=== PATIENT | female | born 1980 | race Caucasian/White ===

== ENCOUNTER 2019-09-22 22:11 | Emergency (ER) | payer OTHER ==
[~2019-09-22] VITALS: Ht 170.2 cm; Wt 70.3 kg
--- OUTSIDE RECORDS SUMMARY | 2019-09-28 12:18 | XMS REPORT ---
[facility] Address Unknown Phone Unavailable Care Team Providers Care Tuna Purse Seiner Name Role Phone Unavailable Unavailable Payers Payer Name Policy Type Policy Number Effective Date Expiration Date Problems This patient has no known problems. Allergies, Adverse Reactions, Alerts Allergy Name Allergy Type Status Severity Reaction(s) Onset Date Inactive Date Treating Clinician Comments No Known Allergies DA Active U 2019-09-02 00:00:00 pencillin DA Active VT 2019-08-30 00:00:00 No Known Allergies DA Active U 2019-08-27 00:00:00 No Known Allergies DA Active U 2013-04-20 00:00:00 Medications This patient has no known medications. Results Test Description Test Time Test Comments Text Results Atomic Results Result Comments CBC W/AUTO DIFF 2019-09-04 08:02:00 WHITE BLOOD CELL (test code=WBC) 23.15 K/mm3 5.0-12.0 RED BLOOD CELL (test code=RBC) 3.60 M/mm3 4.20-5.40 HEMOGLOBIN (test code=HGB) 10.9 G/DL 12.0-16.0 HEMATOCRIT (test code=HCT) 32.9 % 36.0-46.0 MEAN CELL VOLUME (test code=MCV) 91 fL 81-99 MEAN CELL HGB (test code=MCH) 30.3 PGM 27-31 MEAN CELL HGB CONCENTRATION (test code=MCHC) 33.1 G/DL 33-37 RED CELL DISTRIBUTION WIDTH (test code=RDW) 14.0 % 11.6-16.2 PLATELET COUNT (test code=PLT) 229 K/mm3 130-400 MEAN PLATELET VOLUME (test code=MPV) 11.4 fl 7.4-10.4 NEUTROPHIL % (test code=NT%) 77.6 % 43-65 IMMATURE GRANULOCYTE % (test code=IG%) 0.9 % 0.0-2.0 LYMPHOCYTE % (test code=LY%) 12.7 % 20.5-45.5 MONOCYTE % (test code=MO%) 8.2 % 5.5-11.7 EOSINOPHIL % (test code=EO%) 0.3 % 0.9-2.9 BASOPHIL % (test code=BA%) 0.3 % 0.2-1.0 NUCLEATED RBC % (test code=NRBC%) 0.0 % 0-1.0 NEUTROPHIL # (test code=NT#) 17.98 K/mm3 2.2-4.8 LYMPHOCYTE # (test code=LY#) 2.95 K/mm3 1.3-2.9 MONOCYTE # (test code=MO#) 1.90 K/mm3 0.3-0.8 EOSINOPHIL # (test code=EO#) 0.06 K/MM3 0.0-0.2 BASOPHIL # (test code=BA#) 0.06 K/mm3 0.0-0.1 CBC W/AUTO [id number] 22:26:00* Test Item Value Reference Range Comments WHITE BLOOD CELL (test code=WBC) 25.57 K/mm3 5.0-12.0 PATIENT DELIVERED Critical Value reported toFirst Name:EVERETT Last Name:ARLEY READ BACK AND VERIFIEDby T.LAB.IXQ, on 09/03/19, @ 2573. RED BLOOD CELL (test code=RBC) 3.81 M/mm3 4.20-5.40 HEMOGLOBIN (test code=HGB) 11.4 G/DL 12.0-16.0 HEMATOCRIT (test code=HCT) 34.7 % 36.0-46.0 MEAN CELL VOLUME (test code=MCV) 91 fL 81-99 MEAN CELL HGB (test code=MCH) 29.9 PGM 27-31 MEAN CELL HGB CONCENTRATION (test code=MCHC) 32.9 G/DL 33-37 RED CELL DISTRIBUTION WIDTH (test code=RDW) 13.9 % 11.6-16.2 PLATELET COUNT (test code=PLT) 244 K/mm3 130-400 MEAN PLATELET VOLUME (test code=MPV) 11.3 fl 7.4-10.4 NEUTROPHIL % (test code=NT%) 86.2 % 43-65 IMMATURE GRANULOCYTE % (test code=IG%) 1.1 % 0.0-2.0 LYMPHOCYTE % (test code=LY%) 4.6 % 20.5-45.5 MONOCYTE % (test code=MO%) 7.8 % 5.5-11.7 EOSINOPHIL % (test code=EO%) 0.0 % 0.9-2.9 BASOPHIL % (test code=BA%) 0.3 % 0.2-1.0 NUCLEATED RBC % (test code=NRBC%) 0.0 % 0-1.0 NEUTROPHIL # (test code=NT#) 22.02 K/mm3 2.2-4.8 LYMPHOCYTE # (test code=LY#) 1.18 K/mm3 1.3-2.9 MONOCYTE # (test code=MO#) 2.00 K/mm3 0.3-0.8 EOSINOPHIL # (test code=EO#) 0.01 K/MM3 0.0-0.2 BASOPHIL # (test code=BA#) 0.08 K/mm3 0.0-0.1 AG HEPATITIS B [id number] 14:18:00* Test Item Value Reference Range Comments AG HEPATITIS B SURFACE (test code=HBSAG) NEGATIVE NEGATIVE HIV 1 2 COMBO AG/AB [id number] 14:18:00* Test Item Value Reference Range Comments HIV 1 2 COMBO AG/AB SCREEN (test code=[id number]) Nonreactive Nonreactive AG HEPATITIS B [id number] 14:17:00* Test Item Value Reference Range Comments AG HEPATITIS B SURFACE (test code=HBSAG) NEGATIVE NEGATIVE RAPID PLASMA [id number] 10:16:00* Test Item Value Reference Range Comments RAPID PLASMA REAGIN (test code=RPR) NONREACTIVE NONREACTIVE AG HEPATITIS B [id number] 22:05:00* Test Item Value Reference Range Comments AG HEPATITIS B SURFACE (test code=HBSAG) NONREACTIVE HIV 1 2 COMBO AG/AB [id number] 22:05:00* Test Item Value Reference Range Comments HIV 1 2 COMBO AG/AB SCREEN (test code=[id number]) Nonreactive Nonreactive DRUGS OF ABUSE SCREEN [id number] 21:39:00* Test Item Value Reference Range Comments UR COCAINE (test code=COCAU) NEGATIVE NEGATIVE UR METHAMPHETAMINE (test code=METHAMPHU) NEGATIVE NEGATIVE UR CANABINOIDS (test code=CANU) NEGATIVE NEGATIVE UR AMPHETAMINE (test code=AMPHU) NEGATIVE NEGATIVE UR BARBITURATE (test code=BARBQLU) NEGATIVE NEGATIVE UR BENZODIAZEPINE (test code=BENZU) NEGATIVE NEGATIVE METHADONE (test code=METHDU) NEGATIVE NEGATIVE PROPOXYPHENE SCREEN (test code=PROPXSQ) NEGATIVE NEGATIVE UR OPIATES QUAL (test code=OPIAQLU) NEGATIVE NEGATIVE OXYCODONE (test code=OXYCOD) NEGATIVE NEGATIVE UR TRICYCLICS (test code=TRICYCU) NEGATIVE NEGATIVE UR PHENCYCLIDINE (PCP) (test code=PHENCU) NEGATIVE NEGATIVE UR BUPRENORPHINE QUAL (test code=BUPRESCRT) NEGATIVE NEAGTIVE CBC W/AUTO [id number] 21:20:00* Test Item Value Reference Range Comments WHITE BLOOD CELL (test code=WBC) 10.42 K/mm3 5.0-12.0 RED BLOOD CELL (test code=RBC) 3.59 M/mm3 4.20-5.40 HEMOGLOBIN (test code=HGB) 10.8 G/DL 12.0-16.0 HEMATOCRIT (test code=HCT) 32.5 % 36.0-46.0 MEAN CELL VOLUME (test code=MCV) 91 fL 81-99 MEAN CELL HGB (test code=MCH) 30.1 PGM 27-31 MEAN CELL HGB CONCENTRATION (test code=MCHC) 33.2 G/DL 33-37 RED CELL DISTRIBUTION WIDTH (test code=RDW) 13.8 % 11.6-16.2 PLATELET COUNT (test code=PLT) 267 K/mm3 130-400 MEAN PLATELET VOLUME (test code=MPV) 11.6 fl 7.4-10.4 NEUTROPHIL % (test code=NT%) 67.5 % 43-65 IMMATURE GRANULOCYTE % (test code=IG%) 0.6 % 0.0-2.0 LYMPHOCYTE % (test code=LY%) 22.3 % 20.5-45.5 MONOCYTE % (test code=MO%) 8.4 % 5.5-11.7 EOSINOPHIL % (test code=EO%) 0.9 % 0.9-2.9 BASOPHIL % (test code=BA%) 0.3 % 0.2-1.0 NUCLEATED RBC % (test code=NRBC%) 0.0 % 0-1.0 NEUTROPHIL # (test code=NT#) 7.04 K/mm3 2.2-4.8 LYMPHOCYTE # (test code=LY#) 2.32 K/mm3 1.3-2.9 MONOCYTE # (test code=MO#) 0.88 K/mm3 0.3-0.8 EOSINOPHIL # (test code=EO#) 0.09 K/MM3 0.0-0.2 BASOPHIL # (test code=BA#) 0.03 K/mm3 0.0-0.1 COMPREHENSIVE METABOLIC [id number] 21:46:00* Test Item Value Reference Range Comments SODIUM (test code=NA) 137 mEq/L 134-147 POTASSIUM (test code=K) 3.7 mEq/L 3.4-5.0 CHLORIDE (test code=CL) 107 mEq/L 100-108 CARBON DIOXIDE (test code=CO2) 23 mEq/L 21-33 ANION GAP (test code=GAP) 11 0-20 GLUCOSE (test code=GLU) 113 mg/dL 70-110 BLOOD UREA NITROGEN (test code=BUN) 11 mg/dL 7-18 GLOMERULAR FILTRATION RATE (test code=GFR) 110.7 95-105 Units of measure=ml/min/1.73 m2 CREATININE (test code=CREAT) 0.6 mg/dL 0.6-1.3 TOTAL PROTEIN (test code=PROT) 6.4 g/dL 6.4-8.2 ALBUMIN (test code=ALB) 2.50 g/dL 3.4-5.0 CALCIUM (test code=CA) 8.0 mg/dL 8.0-10.5 BILIRUBIN TOTAL (test code=BILT) 0.2 MG/DL <1.5 SGOT/AST (test code=AST) 16 IUnit/L 15-37 SGPT/ALT (test code=ALT) 18 IUnit/L 15-65 ALKALINE PHOSPHATASE TOTAL (test code=ALKP) 127 IUnit/L 20-125 URIC [id number] 21:46:00* Test Item Value Reference Range Comments URIC ACID (test code=URIC) 2.9 mg/dL 2.6-7.2 LACTIC DEHYDROGENASE(LDH)2019-08-27 21:46:00* Test Item Value Reference Range Comments LACTIC DEHYDROGENASE(LDH) (test code=LDH) 167 IUnits/L 84-246 CBC W/AUTO [id number] 21:35:00* Test Item Value Reference Range Comments WHITE BLOOD CELL (test code=WBC) 10.60 x10 3/uL 4.5-11.0 RED BLOOD CELL (test code=RBC) 3.52 x10 6/uL 3.54-5.02 HEMOGLOBIN (test code=HGB) 10.7 g/dL 11.0-15.0 HEMATOCRIT (test code=HCT) 32.4 % 33.0-45.0 MEAN CELL VOLUME (test code=MCV) 92.0 fL 81.0-99.0 MEAN CELL HGB (test code=MCH) 30.4 pg 27.0-33.0 MEAN CELL HGB CONCETRATION (test code=MCHC) 33.0 g/dL 33.0-37.0 RED CELL DISTRIBUTION WIDTH CV (test code=RDW) 13.5 % 11.5-14.5 RED CELL DISTRIBUTION WIDTH SD (test code=RDW-SD) 45.9 fL 37.0-54.0 PLATELET COUNT (test code=PLT) 257 x10 3/uL 150-400 MEAN PLATELET VOLUME (test code=MPV) 11.3 fL 7.0-9.0 NEUTROPHIL % (test code=NT%) 62.0 % 56.0-77.0 IMMATURE GRANULOCYTE % (test code=IG%) 0.6 % 0.0-2.0 LYMPHOCYTE % (test code=LY%) 27.0 % 14.0-32.0 MONOCYTE % (test code=MO%) 9.2 % 4.8-9.0 EOSINOPHIL % (test code=EO%) 0.9 % 0.3-3.7 BASOPHIL % (test code=BA%) 0.3 % 0.0-2.0 NUCLEATED RBC % (test code=NRBC%) 0.0 % 0-0 NEUTROPHIL # (test code=NT#) 6.58 x10 3/uL 2.0-7.6 IMMATURE GRANULOCYTE # (test code=IG#) 0.06 x10 3/uL 0.00-0.03 LYMPHOCYTE # (test code=LY#) 2.86 x10 3/uL 1.0-3.8 MONOCYTE # (test code=MO#) 0.97 x10 3/uL 0.1-0.8 EOSINOPHIL # (test code=EO#) 0.10 x10 3/uL 0.0-0.2 BASOPHIL # (test code=BA#) 0.03 x10 3/uL 0.0-0.2 NUCLEATED RBC # (test code=NRBC#) 0.00 x10 3/uL 0.0-0.1 MANUAL DIFF REQUIRED (test code=MDIFF) NO URINALYSIS [id number] 21:08:00* Test Item Value Reference Range Comments UA COLOR (test code=COLU) YELLOW YEL/STRAW UA APPEARANCE (test code=APPU) SL CLOUDY CLEAR UA GLUCOSE DIPSTICK (test code=DGLUU) NEGATIVE NEGATIVE UA BILIRUBIN DIPSTICK (test code=BILU) NEGATIVE NEGATIVE UA KETONE DIPSTICK (test code=KETU) NEGATIVE NEGATIVE UA SPECIFIC GRAVITY (test code=SGU) 1.024 1.005-1.030 UA BLOOD DIPSTICK (test code=TIERRA) NEGATIVE NEGATIVE UA PH DIPSTICK (test code=MIGUEL) 7.0 5.0-7.0 UA PROTEIN DIPSTICK (test code=PROU) 1+ NEGATIVE UA UROBILINIOGEN DIPSTICK (test code=URO) 0.2 mg/dL 0.2-1.0 UA NITRITE DIPSTICK (test code=EMERSON) NEGATIVE NEGATIVE UA LEUKOCYTE ESTERASE DIPSTICK (test code=LEUU) NEGATIVE NEGATIVE UA RBC (test code=RBCU) 0-3 RBC/HPF 0-3 UA WBC NO REFLEX (test code=WBCUCL) 0-3 WBC/HPF 0-3 UA BACTERIA (test code=BACU) NONE SEEN /HPF NONE SEEN UA SQUAMOUS CELLS (test code=SQU) 36-50 /HPF NONE SEEN UA MUCUS (test code=MUCU) TRACE /LPF NONE SEEN COMMENTS: CCUAAMNISURE (ROM) [id number] 20:53:00* Test Item Value Reference Range Comments AMNISURE (ROM) TEST (test code=AMNI) NEGATIVE NEGATIVE URIC [id number] 21:16:00* Test Item Value Reference Range Comments URIC ACID (test code=URIC) 2.5 mg/dL 2.6-7.2 THYROID STIMULATING [id number] 21:16:00* Test Item Value Reference Range Comments THYROID STIMULATING HORMONE (test code=TSH) 1.69 0.42-5.47 Results in marni-International Units/mL LACTIC DEHYDROGENASE(LDH)2019-07-10 21:06:00* Test Item Value Reference Range Comments LACTIC DEHYDROGENASE(LDH) (test code=LDH) 158 IUnits/L 84-246 - XR CHEST 1 [id number] 15:59:00 FAX: Roque Webb MD [phone] [place]: St: REG Name: ALEJO RAJAN [facility] : [birth year] Age/S: 38/F [address] [place] [address] Unit #: [id number] Loc: [place] [address] Phys: Roque Webb MD Acct: [id number] Dis Date: Status: REG ER PHONE #: [phone] Exam Date: 07/10/2019 1552 FAX #: [phone] Reason: stroke EXAMS: CPT CODE: [id number] XR CHEST 1 V 16748 EXAM: CHEST SINGLE VIEW HISTORY: 38-year-old female with stroke COMPARISON: None. FINDINGS: The lungs are clear. The cardiomediastinal silhouette is normal for projection. No acute osseous abnormality. IMPRESSION: 1. No acute cardiopulmonary abnormality. SL: [id number] at 1552 Reported and signed by: Jairo Owens M.D. CC: Roque Webb MD Technologist: Belén Cordova, RT(R); Elinor Hobson RT(R) [facility] Date/Time/By: 07/10/2019 (9385) : By: [email or web address] Orig Print D/T: S: 07/10/2019 (8713) PAGE 1 Signed Report COMPREHENSIVE METABOLIC PANEL 2019-07-10 15:46:00* Test Item Value Reference Range Comments SODIUM (test code=NA) 138 mEq/L 134-147 POTASSIUM (test code=K) 3.7 mEq/L 3.4-5.0 CHLORIDE (test code=CL) 108 mEq/L 100-108 CARBON DIOXIDE (test code=CO2) 22 mEq/L 21-33 ANION GAP (test code=GAP) 12 0-20 GLUCOSE (test code=GLU) 121 mg/dL 70-110 BLOOD UREA NITROGEN (test code=BUN) 7 mg/dL 7-18 GLOMERULAR FILTRATION RATE (test code=GFR) 111.3 105-110 Units of measure=ml/min/1.73 m2 CREATININE (test code=CREAT) 0.6 mg/dL 0.6-1.3 TOTAL PROTEIN (test code=PROT) 6.8 g/dL 6.4-8.2 ALBUMIN (test code=ALB) 2.90 g/dL 3.4-5.0 CALCIUM (test code=CA) 8.5 mg/dL 8.0-10.5 BILIRUBIN TOTAL (test code=BILT) 0.3 MG/DL <1.5 SGOT/AST (test code=AST) 16 IUnit/L 15-37 SGPT/ALT (test code=ALT) 21 IUnit/L 15-65 ALKALINE PHOSPHATASE TOTAL (test code=ALKP) 79 IUnit/L 20-125 LACTIC DEHYDROGENASE(LDH)2019-07-10 15:46:00* Test Item Value Reference Range Comments LACTIC DEHYDROGENASE(LDH) (test code=LDH) 166 IUnits/L 84-246 [id number] 15:46:00* Test Item Value Reference Range Comments TROPONIN-I (test code=TROPI) < 0.015 ng/mL 0.000-0.045 Negative: <=0.045 Positive: >=0.046 Correlation with serial results, other cardiac markers andclinical findings is necessary to determine the clinicalsignificance of this result. Results using different methodologies should not be comparedto one another as quantitative results may vary by method. URINALYSIS [id number] 15:43:00* Test Item Value Reference Range Comments UA COLOR (test code=COLU) YELLOW YEL/STRAW UA APPEARANCE (test code=APPU) CLEAR CLEAR UA GLUCOSE DIPSTICK (test code=DGLUU) NEGATIVE NEGATIVE UA BILIRUBIN DIPSTICK (test code=BILU) NEGATIVE NEGATIVE UA KETONE DIPSTICK (test code=KETU) NEGATIVE NEGATIVE UA SPECIFIC GRAVITY (test code=SGU) 1.006 1.005-1.030 UA BLOOD DIPSTICK (test code=TIERRA) NEGATIVE NEGATIVE UA PH DIPSTICK (test code=IMGUEL) 7.0 5.0-7.0 UA PROTEIN DIPSTICK (test code=PROU) NEGATIVE NEGATIVE UA UROBILINIOGEN DIPSTICK (test code=URO) 0.2 mg/dL 0.2-1.0 UA NITRITE DIPSTICK (test code=EMERSON) NEGATIVE NEGATIVE UA LEUKOCYTE ESTERASE DIPSTICK (test code=LEUU) NEGATIVE NEGATIVE UA RBC (test code=RBCU) 0-3 RBC/HPF 0-3 UA WBC NO REFLEX (test code=WBCUCL) 0-3 WBC/HPF 0-3 UA BACTERIA (test code=BACU) TRACE /HPF NONE SEEN UA SQUAMOUS CELLS (test code=SQU) 0-5 /HPF NONE SEEN UA MUCUS (test code=MUCU) TRACE /LPF NONE SEEN PROTHROMBIN [id number] 15:32:00* Test Item Value Reference Range Comments PROTHROMBIN TIME PATIENT (test code=PTP) 11.0 SECONDS 9.3-12.9 INTERNATIONAL NORMAL RATIO (test code=INR) 1.0 0.8-1.2 TARGET INR BY INDICATION Indication INR1. Prophylaxis of venous thrombosis 2.0 - 3.0 (orthopedic surgery), Prophylaxis of venous thrombosis (other than high-risk surgery), Treatment of Deep Vein Thrombosis/Pulmonary Embolism, Prevention of systemic embolism - Tissue heart valves, Acute Myocardial Infarction (to prevent systemic embolism), Valvular heart disease, Atrial Fibrillation, Bileaflet mechanical valve in aortic position.2. Mechanical prosthetic valves (high risk), 2.5 - 3.5 Presence of Lupus Anticoagulant or Antiphospholipid Antibodies, Prevention of systemic embolism - Acute Myocardial Infarction (to prevent recurrent infarct). THROMBOPLASTIN TIME [id number] 15:32:00* Test Item Value Reference Range Comments THROMBOPLASTIN TIME PARTIAL (test code=PTT) 25.6 Seconds 25.0-39.5 Therapeutic Range: 50.4 - 88.3 Seconds Effective 01/23/2019 PROTHROMBIN [id number] 15:28:00* Test Item Value Reference Range Comments PROTHROMBIN TIME PATIENT (test code=PTP) 11.0 SECONDS 9.3-12.9 INTERNATIONAL NORMAL RATIO (test code=INR) 1.0 0.8-1.2 TARGET INR BY INDICATION Indication INR1. Prophylaxis of venous thrombosis 2.0 - 3.0 (orthopedic surgery), Prophylaxis of venous thrombosis (other than high-risk surgery), Treatment of Deep Vein Thrombosis/Pulmonary Embolism, Prevention of systemic embolism - Tissue heart valves, Acute Myocardial Infarction (to prevent systemic embolism), Valvular heart disease, Atrial Fibrillation, Bileaflet mechanical valve in aortic position.2. Mechanical prosthetic valves (high risk), 2.5 - 3.5 Presence of Lupus Anticoagulant or Antiphospholipid Antibodies, Prevention of systemic embolism - Acute Myocardial Infarction (to prevent recurrent infarct). THROMBOPLASTIN TIME [id number] 15:28:00* Test Item Value Reference Range Comments THROMBOPLASTIN TIME PARTIAL (test code=PTT) Seconds 25.0-39.5 CBC W/AUTO [id number] 15:26:00* Test Item Value Reference Range Comments WHITE BLOOD CELL (test code=WBC) 12.65 x10 3/uL 4.5-11.0 RED BLOOD CELL (test code=RBC) 3.82 x10 6/uL 3.54-5.02 HEMOGLOBIN (test code=HGB) 12.1 g/dL 11.0-15.0 HEMATOCRIT (test code=HCT) 35.9 % 33.0-45.0 MEAN CELL VOLUME (test code=MCV) 94.0 fL 81.0-99.0 MEAN CELL HGB (test code=MCH) 31.7 pg 27.0-33.0 MEAN CELL HGB CONCETRATION (test code=MCHC) 33.7 g/dL 33.0-37.0 RED CELL DISTRIBUTION WIDTH CV (test code=RDW) 13.2 % 11.5-14.5 RED CELL DISTRIBUTION WIDTH SD (test code=RDW-SD) 45.5 fL 37.0-54.0 PLATELET COUNT (test code=PLT) 306 x10 3/uL 150-400 MEAN PLATELET VOLUME (test code=MPV) 10.1 fL 7.0-9.0 NEUTROPHIL % (test code=NT%) 71.4 % 56.0-77.0 IMMATURE GRANULOCYTE % (test code=IG%) 0.5 % 0.0-2.0 LYMPHOCYTE % (test code=LY%) 17.6 % 14.0-32.0 MONOCYTE % (test code=MO%) 9.6 % 4.8-9.0 EOSINOPHIL % (test code=EO%) 0.6 % 0.3-3.7 BASOPHIL % (test code=BA%) 0.3 % 0.0-2.0 NUCLEATED RBC % (test code=NRBC%) 0.0 % 0-0 NEUTROPHIL # (test code=NT#) 9.03 x10 3/uL 2.0-7.6 IMMATURE GRANULOCYTE # (test code=IG#) 0.06 x10 3/uL 0.00-0.03 LYMPHOCYTE # (test code=LY#) 2.23 x10 3/uL 1.0-3.8 MONOCYTE # (test code=MO#) 1.21 x10 3/uL 0.1-0.8 EOSINOPHIL # (test code=EO#) 0.08 x10 3/uL 0.0-0.2 BASOPHIL # (test code=BA#) 0.04 x10 3/uL 0.0-0.2 NUCLEATED RBC # (test code=NRBC#) 0.00 x10 3/uL 0.0-0.1 MANUAL DIFF REQUIRED (test code=MDIFF) NO [id number] 15:13:00* Test Item Value Reference Range Comments GLUBED (test code=GLUBED) 119 MG/DL 70-110 Performed by certified lasting machine operator bed at [facility] - CT HEAD/BRAIN W/O [id number] 15:07:00 Name: [facility] [place] : 1980 Age/S: 38 / F [address] [place] [address] Unit #: [id number] Loc: [place] [address] Phys: Roque Webb MD Acct: [id number] Dis Date: Status: REG ER PHONE #: [phone] Exam Date: 07/10/2019 1458 FAX #: [phone] Reason: BLURRED VISION EXAMS: CPT CODE: [id number] CT HEAD/BRAIN W/O CONT [id number] CT head without contrast 07/10/2019 HISTORY: Blurry vision PROCEDURE: Multiple axial images from the skull base to the skull vertex were obtained without contrast. Coronal and sagittal reconstructed images were performed CT imaging performed at this location utilizes radiation dose optimization techniques which include one or more of the following: -Automated exposure control -Adjustment of the mA and/or kV according to patient size -Use of iterative reconstruction technique CT Radiation Dose DLP 419.7 mGy-cm No prior exams are available for comparison FINDINGS: No acute intracranial hemorrhage, midline shift, extra-axial fluid collection, or hydrocephalus is present. No cortical hypodensity to sugg est an acute infarct is noted. Monroy-white differentiation is within yaz l limits. The visualized mastoid air cells are clear. There is no air-fl uid level in the visualized paranasal sinuses. IMPRESSION: No acute intracranial abnormality Findings were discussed with Dr. Webb by Dr. Lay at 3:06 pm on 07/10/2019 SL: [id number] at 1503 Reported and signed by: Ben Lay M.D. CC: Roque Webb MD Technologist:RT Johny(R)(CT) CTDI: DLP: Trnscb Date/Time: 07/10/2019 (0459) [email or web address] Orig Print D/T: S: 07/10/2019 (1976) PAGE 1 Signed Report
== END 2019-09-22 23:03 | disposition home or self-care (01) ==
LOC: FSED 22:11
DX: N76.0 Acute vaginitis (principal)
CPT/HCPCS: 99283

== ENCOUNTER 2020-02-05 11:50 | Emergency (ER) | payer OTHER ==
[~2020-02-05] VITALS: Ht 170.2 cm; Wt 81.6 kg
== END 2020-02-05 13:04 | disposition home or self-care (01) ==
LOC: FSED 11:50
DX: R50.9 Fever, unspecified (principal); R05 Cough; J02.9 Acute pharyngitis, unspecified; B34.9 Viral infection, unspecified
CPT/HCPCS: 83518; 87400; 99282